=== PATIENT | male | born 1940 | race Native Hawaiian/Other Pacific Islander ===

== ENCOUNTER 2017-08-19 13:04 | Outpatient (CLI) | payer OTHER | END 2017-08-19 18:18 | disposition home or self-care (01) | LOC: LABW 13:04 | DX: L29.0 Pruritus ani (principal) | CPT/HCPCS: 87015; 87045; 87205; 87328; 87329; 87899 ==

== ENCOUNTER 2018-05-28 14:35 | Outpatient (CLI) | payer OTHER | END 2018-05-28 23:29 | disposition home or self-care (01) | LOC: RAD 14:35 | DX: J20.9 Acute bronchitis, unspecified (principal) ==